=== PATIENT | female | born 2000 | race African-American/Black ===

== ENCOUNTER 2024-02-13 10:03 | Day surgery (SDC) | payer OTHER ==
[2024-02-13 10:22] VITALS: BMI 33.6
[2024-02-13 11:37] LABS: Fetal Membranes Rupture No Membranes Rupture (No Rupture)
== END 2024-02-13 11:54 | disposition home or self-care (01) ==
LOC: CSHLD/OP 10:03
PROVIDERS: ATTEND Family Medicine
DX: Z03.71 Encounter for suspected problem with amniotic cavity and membrane ruled out (principal); O47.03 False labor before 37 completed weeks of gestation, third trimester; Z3A.35 35 weeks gestation of pregnancy; Z79.899 Other long term (current) drug therapy
CPT/HCPCS: 84112

== ENCOUNTER 2024-02-13 17:43 | Day surgery (SDC) | payer OTHER ==
[2024-02-13 19:48] LABS: Bilirubin Neg (Negative); Blood, Urine 250 (Negative); Glucose, Urine (Dipstick) Normal (Negative); Ketone, Urine Negative (Negative); Leukocyte 25 (Negative); Nitrite Negative (Negative); Protein, Urine (Dipstick) Negative (Neg-Trace)
[2024-02-13 19:51] LABS: Clarity Hazy (Clear)
[2024-02-13 19:57] LABS: RBC/HPF 21-50 HPF (0-3)
[2024-02-13 19:58] LABS: CAUTI Indications for Culture Pregnancy; Squamous Epithelial 0-3 HPF (0-3)
[2024-02-13 19:59] LABS: Bacteria/HPF 1+ HPF (None Seen); Transitional Epithelial 0-3 HPF (None Seen)
[2024-02-13 20:00] LABS: Urine Culture Reflex Yes Yes
== END 2024-02-13 20:19 | disposition home or self-care (01) ==
LOC: CSHLD/OP 17:43
PROVIDERS: ATTEND Family Medicine
DX: O46.93 Antepartum hemorrhage, unspecified, third trimester (principal); Z3A.35 35 weeks gestation of pregnancy
CPT/HCPCS: 76819; 81001; 84112; 87086; 99283

== ENCOUNTER 2024-02-17 08:47 | Day surgery (SDC) | payer OTHER ==
[2024-02-17] MEDS ORDERED: hydrALAZINE 20 MG/ML VIAL SLOW IVP PRN (09:10)
[2024-02-17 10:40] VITALS: BMI 33.6
[2024-02-17 10:50] LABS: Bilirubin Neg (Negative); Blood, Urine Negative (Negative); Glucose, Urine (Dipstick) Normal (Negative); Ketone, Urine 15 mg/dL (Negative); Leukocyte 25 (Negative); Nitrite Negative (Negative); Protein, Urine (Dipstick) Negative (Neg-Trace); Specific Gravity, Urine 1.005 (1.005-1.030); Urobilinogen Normal mg/dL (Less than 2)
[2024-02-17 11:04] LABS: Clarity Hazy (Clear)
[2024-02-17 11:07] LABS: Bacteria/HPF Rare-Few HPF (None Seen); CAUTI Indications for Culture Pregnancy; RBC/HPF 0-3 HPF (0-3); WBC/HPF 0-3 HPF (0-3)
[2024-02-17 11:08] LABS: Urine Culture Reflex Yes Yes
[2024-02-17] MEDS: Cephalexin 500 MG CAP PO SCH (12:12)
== END 2024-02-17 12:15 | disposition home or self-care (01) ==
LOC: CSHLD/OP 08:47
PROVIDERS: ATTEND Family Medicine
DX: O47.03 False labor before 37 completed weeks of gestation, third trimester (principal); O99.213 Obesity complicating pregnancy, third trimester; E05.00 Thyrotoxicosis with diffuse goiter without thyrotoxic crisis or storm; O99.283 Endocrine, nutritional and metabolic diseases complicating pregnancy, third trimester; E01.0 Iodine-deficiency related diffuse (endemic) goiter; O99.891 Other specified diseases and conditions complicating pregnancy; R35.0 Frequency of micturition; Z79.899 Other long term (current) drug therapy; Z3A.35 35 weeks gestation of pregnancy
CPT/HCPCS: 81001; 87086; 99284

== ENCOUNTER 2024-02-22 23:36 | Day surgery (SDC) | payer OTHER ==
[2024-02-23 00:05] VITALS: BMI 34.3
[2024-02-23] MEDS ORDERED: hydrALAZINE 20 MG/ML VIAL SLOW IVP PRN (00:12)
[2024-02-23] MEDS ORDERED: Lactated Ringer's 500 ML IV SCH (00:15)
[2024-02-23] MEDS ORDERED: Ondansetron PF 4 MG/2 ML Vial IVP PRN (00:28)
[2024-02-23] MEDS ORDERED: Acetaminophen 500 MG TAB PO SCH (00:30)
[2024-02-23 00:31] LABS: Bilirubin Neg (Negative); Blood, Urine Negative (Negative); Glucose, Urine (Dipstick) Normal (Negative); Ketone, Urine 150 mg/dL (Negative); Leukocyte 25 (Negative); Nitrite Negative (Negative); Protein, Urine (Dipstick) 15 mg/dl (Neg-Trace); Urobilinogen Normal mg/dL (Less than 2)
[2024-02-23] MEDS: Ondansetron PF 4 MG/2 ML Vial IVP SCH (00:32)
[2024-02-23] MEDS: Lactated Ringer's 1,000 ML IV SCH (00:32)
[2024-02-23 00:39] LABS: Clarity Slightly Cloudy (Clear)
[2024-02-23 00:41] LABS: Bacteria/HPF 1+ HPF (None Seen); CAUTI Indications for Culture Pregnancy; RBC/HPF 0-3 HPF (0-3); Urine Culture Reflex Yes Yes
[2024-02-23] MEDS: Fosfomycin 3 GM/Packet PO SCH (01:34)
== END 2024-02-23 01:47 | disposition home or self-care (01) ==
LOC: CSHLD/OP 23:36
PROVIDERS: ATTEND Family Medicine
DX: O70.3 Fourth degree perineal laceration during delivery (principal); O99.283 Endocrine, nutritional and metabolic diseases complicating pregnancy, third trimester; E05.00 Thyrotoxicosis with diffuse goiter without thyrotoxic crisis or storm; O00.01 Abdominal pregnancy with intrauterine pregnancy; O99.891 Other specified diseases and conditions complicating pregnancy; R51.9 Headache, unspecified; H53.8 Other visual disturbances; O23.43 Unspecified infection of urinary tract in pregnancy, third trimester; Z3A.36 36 weeks gestation of pregnancy
CPT/HCPCS: 81001; 87086; 96360; 99283; J2405

== ENCOUNTER 2024-03-05 21:02 | Inpatient (IN) | payer OTHER ==
[2024-03-05 21:26] VITALS: BMI 33.6
[2024-03-05 21:53] LABS: Fetal Membranes Rupture RUPTURE DETECTED (No Rupture)
[2024-03-05] MEDS ORDERED: fentaNYL 50 mcg/mL 1 mL Vial SLOW IVP PRN (22:53)
[2024-03-05] MEDS ORDERED: Tranexamic Acid 1,000 MG/10 ML VIAL IVP PRN (22:53)
[2024-03-05] MEDS ORDERED: Methylergonovine 0.2 MG/ML VIAL IM PRN (23:00)
[2024-03-05] MEDS ORDERED: Carboprost 250 MCG/ML AMP IM PRN (23:00)
[2024-03-05] MEDS ORDERED: Oxytocin 30 units/NS 500 ML 500 ML IVPB SCH (23:00)
[2024-03-05] MEDS ORDERED: Diphenoxylate HCl/Atropine Tablet PO PRN ×2 (23:00)
[2024-03-05] MEDS ORDERED: Ondansetron PF 4 MG/2 ML Vial IVP PRN (23:00)
[2024-03-05] MEDS ORDERED: Misoprostol 200 MCG TAB RC PRN (23:00)
[2024-03-05] MEDS ORDERED: Lidocaine 1% (PF) 30 ML VIAL SC PRN (23:00)
[2024-03-05] MEDS ORDERED: Promethazine HCl 25 MG/ML VIAL IM PRN (23:00)
[2024-03-05] MEDS ORDERED: Acetaminophen 500 MG TAB PO PRN (23:00)
[2024-03-05] MEDS ORDERED: hydrALAZINE 20 MG/ML VIAL SLOW IVP PRN (23:00)
[2024-03-05 23:09] LABS: Hematocrit 34.5 % (34.9-44.5); Hemoglobin 11.2 g/dL (12.0-15.5); Mean Corpuscular HGB CONC 32.5 g/dL (32.0-36.0); Mean Corpuscular Hemoglobin 27.7 pg (27.0-33.0); Mean Corpuscular Volume 85.4 fL (81.6-98.3); Mean Platelet Volume 10.6 fL (7.4-10.4); Platelet Count 275 10x3/uL (150-450); RBC Distribution Width 13.1 % (11.5-14.5); Red Blood Cell (RBC) Count 4.04 10x6/uL (3.90-5.03); White Blood Cell (WBC) Count 8.7 10x3/uL (3.5-10.5)
[2024-03-05] MEDS: Lactated Ringer's 1,000 ML IV SCH (23:17)
[2024-03-05] MEDS: Oxytocin 30 units/NS 500 ML 500 ML IV SCH (23:17)
[2024-03-05 23:40] LABS: HBsAg Index 0.23 S/CO (0-0.99); HIV (1/2) Antibody/Antigen Non-Reactive (NonReactive); HIV 1/2 INDEX 0.08 S/CO (<1.00); Hep B Surf Ag - L&D Non-Reactive S/CO (NonReactive)
[2024-03-05 23:41] LABS: Syphilis Antibody Nonreactive (Nonreactive); Syphilis Antibody Index 0.05 S/CO (<1.00 Non-Reactive)
[2024-03-06] MEDS: fentaNYL/Ropivacaine Epidural 100 ML ONE (02:40)
[2024-03-06] MEDS ORDERED: diphenhydrAMINE 50 MG/ML VIAL IVP PRN (03:03)
[2024-03-06] MEDS ORDERED: Ondansetron PF 4 MG/2 ML Vial IVP PRN ×2 (03:03→11:48)
[2024-03-06] MEDS ORDERED: ePHEDrine Sulfate 50 MG/10 ML VIAL SLOW IVP PRN (03:03)
[2024-03-06] MEDS ORDERED: Moisturizing Cream (Eucerin) 113 GM JAR TOP PRN (03:03)
[2024-03-06] MEDS ORDERED: Promethazine HCl 25 MG/ML VIAL IM PRN ×2 (03:03→11:48)
[2024-03-06] MEDS ORDERED: Naloxone HCl 0.4 mg/ml Vial IVP PRN ×2 (03:03)
[2024-03-06] MEDS ORDERED: Lactated Ringer's 500 ML IV PRN (03:03)
[2024-03-06] MEDS ORDERED: fentaNYL 2 mcg/Ropivacaine 0.2% Epidural 100 ML CADD EPIDURAL SCH (03:15)
[2024-03-06] MEDS ORDERED: Communication Order-Pharmacy FS SCH (03:15)
[2024-03-06] MEDS ORDERED: diphenhydrAMINE 25 MG CAP PO PRN (11:48)
[2024-03-06] MEDS ORDERED: hydrALAZINE 20 MG/ML VIAL SLOW IVP PRN (11:48)
[2024-03-06] MEDS ORDERED: Benzocaine-Menthol 82.5 ML CAN TOP PRN (11:48)
[2024-03-06] MEDS ORDERED: Methylergonovine 0.2 MG TAB PO PRN (11:48)
[2024-03-06] MEDS ORDERED: Oxytocin 30 units/NS 500 ML 500 ML IV SCH (11:48)
[2024-03-06] MEDS ORDERED: Misoprostol 200 MCG TAB VAG PRN (11:48)
[2024-03-06] MEDS ORDERED: Bisacodyl 10 MG SUPP PR PRN (11:48)
[2024-03-06] MEDS ORDERED: Lanolin Ointment 7 GM TUBE TOP PRN (11:48)
[2024-03-06] MEDS ORDERED: Preparation H Ointment 28 GM TUBE PR PRN (11:48)
[2024-03-06] MEDS ORDERED: Milk Of Magnesia 30 ML UDCUP PO PRN (11:48)
[2024-03-06] MEDS: Ibuprofen 800 MG TAB PO PRN (11:55)
[2024-03-06] MEDS: Acetaminophen 325 MG TAB PO PRN (15:06)
[2024-03-06] MEDS: Ferrous Sulfate 325 MG TAB PO SCH (17:44)
[2024-03-06] MEDS: HYDROcodone/Acetaminophen 5/325 mg Tablet PO SCH (17:58)
[2024-03-06] MEDS: Docusate 100 MG CAP PO SCH (21:27)
[2024-03-06] MEDS: Ibuprofen 800 MG TAB PO SCH (21:27)
[2024-03-07] MEDS: Boostrix 0.5 ML (Tdap) VIAL (>/=7 yrs of age) IM ONE (07:19)
[2024-03-07 07:37] VITALS: BP 131/79; TEMP 98.3
[2024-03-07] MEDS: Prenatal Vitamin 1 TAB PO SCH (07:50)
[2024-03-07] MEDS ORDERED: ePHEDrine Sulfate 50 MG/10 ML VIAL ONE (13:00)
[2024-03-07] MEDS ORDERED: Bupivacaine 0.25% HCL 30 ML VIAL ONE (13:00)
== END 2024-03-07 15:40 | disposition home or self-care (01) | DRG 807 ==
LOC: CSHLD/OP 21:02 → CSHLD 21:28 → CSHPP 03-06 13:50
PROVIDERS: ADMIT Family Medicine; ATTEND Family Medicine
PROC: 10E0XZZ Delivery of Products of Conception, External Approach (ICD-10-PCS; principal; 2024-03-06)
DX: O99.284 Endocrine, nutritional and metabolic diseases complicating childbirth (principal); Z37.0 Single live birth; E05.00 Thyrotoxicosis with diffuse goiter without thyrotoxic crisis or storm; E66.9 Obesity, unspecified; O99.214 Obesity complicating childbirth; Z79.82 Long term (current) use of aspirin; O69.1XX0 Labor and delivery complicated by cord around neck, with compression, not applicable or unspecified; Z3A.38 38 weeks gestation of pregnancy
CPT/HCPCS: 36415; 51702; 84112; 85027; 86780; 86850; 86900; 86901; 87340; 87389; 99285; J0665; J2590; J7120